=== PATIENT | female | born 1975 | race Caucasian/White ===

== ENCOUNTER 2016-10-31 15:01 | Emergency (ER) | payer SELFPAY ==
[~2016-10-31] VITALS: Ht 167.6 cm; Wt 108.9 kg
[~2016-10-31 15:01] MED LIST: AMOXICILLIN500 MG PO; CORDROL20 MG PO; FLEXERIL5 MG PO; Motrin,Rufen800 MG PO; NEURONTIN100 MG PO; NKHM; SUPHEDRIN PO; TAMIFLU75 MG PO; TESSALON PERLE200 MG PO; VIBRAMYCIN100 MG PO; VICODIN 500 MG-1 TAB PO; ZOFRAN ODT4 MG SL; ZYRTEC10 MG PO; [UNRECOGNIZED DRUG - OTHER] PO; [UNRECOGNIZED DRUG - REMARK]
[2016-10-31] MEDS ORDERED: ROBITUSSIN AC 110 ML PO (16:46)
[2016-10-31] MEDS ORDERED: FLONASE ALLERG9.9 ML NAS (16:46)
[2016-10-31] MEDS ORDERED: PREDNISONE10 MG PO (16:46)
[2016-10-31] MEDS ORDERED: CLARITIN10 MG PO (16:46)
== END 2016-10-31 17:56 | disposition home or self-care (01) ==
LOC: ED 15:01
DX: J20.9 Acute bronchitis, unspecified (principal); R03.0 Elevated blood-pressure reading, without diagnosis of hypertension; R50.9 Fever, unspecified; F17.200 Nicotine dependence, unspecified, uncomplicated

== ENCOUNTER 2017-02-27 16:16 | Emergency (ER) | payer SELFPAY ==
[~2017-02-27] VITALS: Ht 167.6 cm; Wt 108.9 kg
[~2017-02-27 16:16] MED LIST changes: +CLARITIN10 MG PO; +FLONASE ALLERG9.9 ML NAS; +PREDNISONE10 MG PO; +ROBITUSSIN AC 110 ML PO
== END 2017-02-27 17:48 | disposition home or self-care (01) ==
LOC: ED 16:16
DX: M72.2 Plantar fascial fibromatosis (principal); F17.200 Nicotine dependence, unspecified, uncomplicated; F10.10 Alcohol abuse, uncomplicated

== ENCOUNTER 2017-03-18 14:10 | Emergency (ER) | payer SELFPAY ==
[~2017-03-18] VITALS: Ht 167.6 cm; Wt 108.9 kg
== END 2017-03-18 14:33 | disposition home or self-care (01) ==
LOC: ED 14:10
DX: S46.911A Strain of unspecified muscle, fascia and tendon at shoulder and upper arm level, right arm, initial encounter (principal); F17.200 Nicotine dependence, unspecified, uncomplicated; X50.0XXA Overexertion from strenuous movement or load, initial encounter; Y93.89 Activity, other specified; Y92.89 Other specified places as the place of occurrence of the external cause; Y99.8 Other external cause status

== ENCOUNTER 2017-11-21 09:07 | Emergency (ER) | payer SELFPAY ==
[~2017-11-21] VITALS: Ht 167.6 cm; Wt 113.4 kg
[2017-11-21 09:43] LABS: BASO % 0.5 % (0.0-1.0); EOS # 0.3 10*3/uL (0.0-0.4); EOS % 4.1 % (1.0-4.0); HEMATOCRIT 48.2 % (37.0-47.0); LYMPH # 1.3 10*3/uL (1.3-4.4); LYMPH % 16.2 % (27.0-41.0); MEAN CELL VOLUME 85.8 fl (81.0-99.0); MEAN CORPUSCULAR HGB 28.5 pg (27.0-31.0); MEAN CORPUSCULAR HGB CONC 33.2 g/dl (33.0-37.0); MEAN PLATELET VOLUME 9.7 fl (9.6-12.3); MONO # 0.6 10*3/uL (0.1-1.0); MONO % 6.8 % (3.0-9.0); NEUT # 5.9 10*3/uL (2.3-7.9); NEUT % 72.2 % (47.0-73.0); PLATELET COUNT AUTOMATED 281 10*3/uL (130-400); RED BLOOD COUNT 5.62 10*6/uL (4.10-5.10); RED CELL DISTRI WIDTH 14.3 % (0-14.5); WHITE BLOOD COUNT 8.1 10*3/uL (4.8-10.8)
[2017-11-21] MEDS ORDERED: HYDR25T PO (09:56)
[2017-11-21 09:59] LABS: ALBUMIN 3.6 gm/dl (3.1-4.5); ALKALINE PHOSPHATASE 102 U/L (45-117); BUN 17 mg/dl (7-24); CHLORIDE 106 mmol/L (98-107); CREATININE 0.83 mg/dL (0.55-1.02); SGOT/AST 19 IU/L (3-35); SGPT/ALT 33 U/L (12-78); SODIUM 140 mmol/L (136-145); TOTAL PROTEIN 7.1 gm/dL (6.4-8.2)
== END 2017-11-21 10:43 | disposition home or self-care (01) ==
LOC: ED 09:07
PROVIDERS: Nurse Practitioner Family
DX: R51 Headache (principal); R03.0 Elevated blood-pressure reading, without diagnosis of hypertension; R11.2 Nausea with vomiting, unspecified

== ENCOUNTER → 2018-03-18 | Outpatient (CLI) | payer SELFPAY ==
[~2018-03-18] MED LIST changes: +CHANTIX1 M1 PO; +COREG12.5 M1 PO; +HYDR25T PO; +NAPROSYN500 MG PO; +XARELTO20 M1 PO; +ZESTRIL20 MG PO
== END | disposition home or self-care (01) ==
LOC: RESCLI 09:30
DX: Z00.00 Encounter for general adult medical examination without abnormal findings (principal); I10 Essential (primary) hypertension; F17.210 Nicotine dependence, cigarettes, uncomplicated; Z79.899 Other long term (current) drug therapy; Z88.8 Allergy status to other drugs, medicaments and biological substances

== ENCOUNTER 2018-03-22 15:56 | Emergency (ER) | payer SELFPAY ==
[~2018-03-22] VITALS: Ht 167.6 cm; Wt 122.9 kg
[~2018-03-22 15:56] MED LIST changes: -CHANTIX1 M1 PO; -COREG12.5 M1 PO; -NAPROSYN500 MG PO; -XARELTO20 M1 PO; -ZESTRIL20 MG PO
[2018-03-22] MEDS ORDERED: NAPROSYN500 MG PO (16:03)
== END 2018-03-22 17:41 | disposition home or self-care (01) ==
LOC: ED 15:56
DX: S93.601A Unspecified sprain of right foot, initial encounter (principal); R03.0 Elevated blood-pressure reading, without diagnosis of hypertension; Z79.899 Other long term (current) drug therapy; W01.0XXA Fall on same level from slipping, tripping and stumbling without subsequent striking against object, initial encounter; Y93.89 Activity, other specified; Y92.89 Other specified places as the place of occurrence of the external cause; Y99.8 Other external cause status

== ENCOUNTER 2018-07-14 15:25 | Emergency (ER) | payer SELFPAY ==
[~2018-07-14] VITALS: Ht 167.6 cm; Wt 122.5 kg
[~2018-07-14 15:25] MED LIST changes: +NAPROSYN500 MG PO
== END 2018-07-14 17:34 | disposition home or self-care (01) ==
LOC: ED 15:25
DX: S80.12XA Contusion of left lower leg, initial encounter (principal); Z79.899 Other long term (current) drug therapy; W08.XXXA Fall from other furniture, initial encounter; Y93.89 Activity, other specified; Y92.89 Other specified places as the place of occurrence of the external cause; Y99.8 Other external cause status

== ENCOUNTER → 2018-08-19 | Outpatient (CLI) | payer SELFPAY ==
[~2018-08-19] MED LIST changes: +CHANTIX1 M1 PO; +COREG12.5 M1 PO; +XARELTO20 M1 PO; +ZESTRIL20 MG PO
== END | disposition home or self-care (01) ==
LOC: RESCLI 01:18
DX: N92.1 Excessive and frequent menstruation with irregular cycle (principal); I10 Essential (primary) hypertension; Z71.6 Tobacco abuse counseling; Z72.0 Tobacco use; Z79.899 Other long term (current) drug therapy; Z88.8 Allergy status to other drugs, medicaments and biological substances

== ENCOUNTER → 2018-08-20 | Outpatient (CLI) | payer SELFPAY ==
[2018-08-20 08:08] LABS: BASO % 0.5 % (0.0-1.0); EOS # 0.3 10*3/uL (0.0-0.4); EOS % 3.8 % (1.0-4.0); HEMATOCRIT 50.9 % (37.0-47.0); HEMOGLOBIN 16.7 g/dl (12.0-16.0); LYMPH # 1.6 10*3/uL (1.3-4.4); LYMPH % 19.1 % (27.0-41.0); MEAN CELL VOLUME 89.1 fl (81.0-99.0); MEAN CORPUSCULAR HGB 29.2 pg (27.0-31.0); MEAN CORPUSCULAR HGB CONC 32.8 g/dl (33.0-37.0); MEAN PLATELET VOLUME 10.1 fl (9.6-12.3); MONO # 0.6 10*3/uL (0.1-1.0); MONO % 7.3 % (3.0-9.0); NEUT # 5.9 10*3/uL (2.3-7.9); NEUT % 69.1 % (47.0-73.0); PLATELET COUNT AUTOMATED 266 10*3/uL (130-400); RED BLOOD COUNT 5.71 10*6/uL (4.10-5.10); RED CELL DISTRI WIDTH 14.3 % (0-14.5); WHITE BLOOD COUNT 8.5 10*3/uL (4.8-10.8)
[2018-08-20 08:37] LABS: ALBUMIN 3.8 gm/dl (3.1-4.5); ALKALINE PHOSPHATASE 90 U/L (45-117); BUN 26 mg/dl (7-24); CHLORIDE 107 mmol/L (98-107); CHOLESTEROL 154 mg/dL (<200); HDL CHOLESTEROL 36 mg/dl (40-60); LDL CHOLESTEROL 98 mg/dL (9-159); POTASSIUM 4.2 mmol/L (3.5-5.1); SGOT/AST 21 IU/L (3-35); SGPT/ALT 37 U/L (12-78); SODIUM 140 mmol/L (136-145); TOTAL PROTEIN 7.3 gm/dL (6.4-8.2); TRIGLYCERIDES 101 mg/dl (<150); VLDL CHOLESTEROL 20 mg/dL (6-40)
[2018-08-20 08:59] LABS: VITAMIN D, 25-HYDROXY 35.5 ng/mL (30-100)
[2018-08-21 06:07] LABS: FOLLICLE STIMULATING HORMONE 14.9 mIU/mL (.); LUTEINIZING HORMONE 004283 15.1 mIU/mL (.)
== END | disposition home or self-care (01) ==
LOC: LAB 07:42
PROVIDERS: Student in an Organized Health Care Education/Training Program
DX: N92.1 Excessive and frequent menstruation with irregular cycle (principal)

== ENCOUNTER → 2018-09-22 | Outpatient (CLI) | payer SELFPAY | END | disposition home or self-care (01) | LOC: RESCLI 01:10 | DX: N92.1 Excessive and frequent menstruation with irregular cycle (principal); I10 Essential (primary) hypertension; Z71.6 Tobacco abuse counseling; Z72.0 Tobacco use; Z79.899 Other long term (current) drug therapy ==

== ENCOUNTER 2018-09-30 08:47 | Inpatient (IN) | payer SELFPAY ==
[~2018-09-30] VITALS: Ht 167.6 cm; Wt 128.9 kg
--- NOTE | ~2018-09-30 | ST ---
[place], [place] EXERCISE STRESS TEST REPORT NAME: NIKHIL HART UNIT #: [id number] ROOM: 427 DOCTOR: CASSIE CORTES MD BIRTHDATE: [birth year] DOS: 10/01/2018 LEXISCAN STRESS EKG REPORT REFERRING PHYSICIAN: Dr. Umanzor. INDICATION: Central chest pain. The patient underwent standard protocol Lexiscan stress EKG. The patient's baseline EKG showed normal sinus with nonspecific ST-T wave changes. Baseline heart rate was 62 with blood pressure 134/80. The patient's peak heart rate was 114 with a blood pressure of 132/88. The patient had no chest pain, no ischemic changes, no arrhythmias. Of note, her rhythm was normal sinus. SUMMARY OF FINDINGS: Unremarkable Lexiscan stress EKG. Please see separate report for perfusion scan imaging results. CASSIE CORTES MD CM:STRESS:EXERCISE STRESS TEST REPORT [id number] CASSIE CORTES MD
--- NOTE | ~2018-09-30 | EKG ---
[place], [place] ELECTROCARDIOGRAM REPORT NAME: NIKHIL HART UNIT #: [id number] ROOM: 427 DOCTOR: ELLIE DRAFT REPORT BIRTHDATE: [birth year] [facility] Test Date: 2018-09-30 Test Time: 15:00:03 Pat Name: NIKHIL HART Department: Room: 427 Gender: F String Studies Director: LELAND : 1975 Requested By: JEAN PAUL MONIQUE Order Number: [id number] Reading MD: Rafat Pederson MD Measurements Intervals [place] Rate: 86 P: MS: QRS: 22 QRSD: 90 T: 17 QT: 374 QTc: 448 Interpretive Statements Atrial fibrillation Borderline T abnormalities, inferior leads No previous ECG available for comparison Electronically Signed On 10-01-2018 13:02:17 PDT by Rafat Pederson MD CM:EKGRPT:ELECTROCARDIOGRAM REPORT 1500 1302 JEAN PAUL SHAH DRAFT REPORT JEAN PAUL MONIQUE DO
--- NOTE | ~2018-09-30 | EKG ---
[place], [place] ELECTROCARDIOGRAM REPORT NAME: NIKHIL HART UNIT #: [id number] ROOM: 427 DOCTOR: ELLIE DRAFT REPORT BIRTHDATE: [birth year] [facility] Test Date: 2018-09-30 Test Time: 12:00:39 Pat Name: NIKHIL HART Department: Room: 427 Gender: F Professor Of Environmental Science: Anila Caro : 1975 Requested By: JEAN PAUL MONIQUE Order Number: [id number] Reading MD: Rafat Pederson MD Measurements Intervals [place] Rate: 79 P: RI: QRS: 12 QRSD: 92 T: 21 QT: 381 QTc: 437 Interpretive Statements Atrial fibrillation Baseline wander in lead(s) II,V1 No previous ECG available for comparison Electronically Signed On 09-30-2018 12:30:09 PDT by Rafat Pederson MD CM:EKGRPT:ELECTROCARDIOGRAM REPORT 1200 1230 JEAN PAUL SHAH DRAFT REPORT JEAN PAUL MONIQUE DO
--- NOTE | ~2018-09-30 | EKG ---
[place], [place] ELECTROCARDIOGRAM REPORT NAME: NIKHIL HART UNIT #: [id number] ROOM: 427 DOCTOR: ELLIE DRAFT REPORT BIRTHDATE: [birth year] [facility] Test Date: 2018-09-30 Test Time: 08:52:26 Pat Name: NIKHIL HART Department: Room: 427 Gender: F Lapper: : 1975 Requested By: JEAN PAUL MONIQUE Order Number: [id number] Reading MD: Rafat Pederson MD Measurements Intervals [place] Rate: 88 P: ME: QRS: 15 QRSD: 99 T: 12 QT: 342 QTc: 414 Interpretive Statements Atrial fibrillation Minimal ST depression, inferior leads Baseline wander in lead(s) V4,V5,V6 No previous ECG available for comparison Electronically Signed On 09-30-2018 12:29:24 PDT by Rafat Pederson MD CM:EKGRPT:ELECTROCARDIOGRAM REPORT [id number] JEAN PAUL SHAH DRAFT REPORT JEAN PAUL MONIQUE DO
[~2018-09-30 08:47] MED LIST changes: -CHANTIX1 M1 PO; -COREG12.5 M1 PO; -XARELTO20 M1 PO; -ZESTRIL20 MG PO
[2018-09-30 08:51] VITALS: BP 106/79
[2018-09-30 09:33] LABS: BASO # 0.1 10*3/uL (0.0-0.1); BASO % 0.7 % (0.0-1.0); EOS # 0.3 10*3/uL (0.0-0.4); EOS % 3.2 % (1.0-4.0); HEMATOCRIT 51.5 % (37.0-47.0); HEMOGLOBIN 17.3 g/dl (12.0-16.0); LYMPH # 1.7 10*3/uL (1.3-4.4); LYMPH % 19.2 % (27.0-41.0); MEAN CELL VOLUME 87.4 fl (81.0-99.0); MEAN CORPUSCULAR HGB 29.4 pg (27.0-31.0); MEAN CORPUSCULAR HGB CONC 33.6 g/dl (33.0-37.0); MONO # 0.7 10*3/uL (0.1-1.0); MONO % 7.6 % (3.0-9.0); NEUT # 6.1 10*3/uL (2.3-7.9); PLATELET COUNT AUTOMATED 289 10*3/uL (130-400); RED BLOOD COUNT 5.89 10*6/uL (4.10-5.10); RED CELL DISTRI WIDTH 13.7 % (0-14.5); WHITE BLOOD COUNT 8.9 10*3/uL (4.8-10.8)
[2018-09-30 09:35] VITALS: BP 106/72
[2018-09-30 09:43] LABS: ACT PARTIAL THROMBO TIME 27.9 SECONDS (20.0-32.1)
[2018-09-30 09:50] LABS: ALBUMIN 3.6 gm/dl (3.1-4.5); BUN 18 mg/dl (7-24); CHLORIDE 103 mmol/L (98-107); CREATININE 0.94 mg/dL (0.55-1.02); POTASSIUM 3.6 mmol/L (3.5-5.1); SGOT/AST 22 IU/L (3-35); SGPT/ALT 40 U/L (12-78); SODIUM 134 mmol/L (136-145)
[2018-09-30 09:51] LABS: LIPASE 135 U/L (73-393)
[2018-09-30 09:53] LABS: ALKALINE PHOSPHATASE 93 U/L (45-117)
[2018-09-30 09:54] LABS: BETA-HCG, QUANT < 1.0 mIU/mL (1-3); TROPONIN I < 0.015 ng/ml (<0.045)
--- NOTE | 2018-09-30 10:24 | NUR ---
AMBULATED TO BATHROOM AND BACK, TOLERATED WELL.
[2018-09-30 10:42] VITALS: BP 110/70
[2018-09-30 10:45] VITALS: BP 118/86
--- NOTE | 2018-09-30 10:45 | NUR ---
A 43, admitted to , under the services of GILMER Turner DO with a diagnosis of NEW ONSET AFIBB, CHEST PAIN. Chief complaint is NEW ONSET AFIBB, CHEST PAIN. Patient arrived via stretcher from ER. Monitor applied. Initial assessment completed. Vital signs taken and recorded. GILMER TURNER DO notified of admission to the unit. Orders received. See assessment for past medical history, medications and allergies. Patient and/or family oriented to unit. [address] visitation policy reviewed. Clothing/patient valuable form completed. MERRICK DE LEÓN
[2018-09-30] MEDS ORDERED: COREG12.5 M1 PO (12:22)
--- NOTE | 2018-09-30 12:22 | NUR ---
DR CORTES ON FLOOR AND NOTIFIED OF CONSULT.
[2018-09-30] MEDS ORDERED: ZESTRIL20 MG PO (12:24)
[2018-09-30] MEDS ORDERED: CHANTIX1 M1 PO (12:24)
[2018-09-30 16:00] VITALS: BP 113/64
[2018-09-30 20:00] VITALS: BP 129/83
--- NOTE | 2018-09-30 20:39 | NUR ---
24 HOUR CHART CHECK DONE
[2018-10-01] VITALS: BP 128/88
[2018-10-01 04:00] VITALS: BP 128/88
[2018-10-01 06:14] LABS: BASO # 0.1 10*3/uL (0.0-0.1); BASO % 0.7 % (0.0-1.0); EOS # 0.3 10*3/uL (0.0-0.4); EOS % 4.6 % (1.0-4.0); HEMATOCRIT 50.7 % (37.0-47.0); HEMOGLOBIN 16.5 g/dl (12.0-16.0); LYMPH # 1.9 10*3/uL (1.3-4.4); LYMPH % 27.6 % (27.0-41.0); MEAN CELL VOLUME 88.9 fl (81.0-99.0); MEAN CORPUSCULAR HGB 28.9 pg (27.0-31.0); MEAN CORPUSCULAR HGB CONC 32.5 g/dl (33.0-37.0); MEAN PLATELET VOLUME 10.5 fl (9.6-12.3); MONO # 0.7 10*3/uL (0.1-1.0); MONO % 10.9 % (3.0-9.0); NEUT # 3.8 10*3/uL (2.3-7.9); NEUT % 55.9 % (47.0-73.0); PLATELET COUNT AUTOMATED 257 10*3/uL (130-400); RED CELL DISTRI WIDTH 13.7 % (0-14.5); WHITE BLOOD COUNT 6.8 10*3/uL (4.8-10.8)
[2018-10-01 06:30] LABS: ALBUMIN 3.3 gm/dl (3.1-4.5); BUN 19 mg/dl (7-24); CHLORIDE 104 mmol/L (98-107); CHOLESTEROL 144 mg/dL (<200); CREATININE 0.79 mg/dL (0.55-1.02); PHOSPHOROUS 3.6 mg/dL (2.5-4.9); POTASSIUM 3.4 mmol/L (3.5-5.1); SGOT/AST 23 IU/L (3-35); SGPT/ALT 44 U/L (12-78); SODIUM 135 mmol/L (136-145); TRIGLYCERIDES 171 mg/dl (<150); VLDL CHOLESTEROL 34 mg/dL (6-40)
[2018-10-01 06:32] LABS: ALKALINE PHOSPHATASE 87 U/L (45-117); HDL CHOLESTEROL 26 mg/dl (40-60); LDL CHOLESTEROL 84 mg/dL (9-159); TOTAL PROTEIN 6.7 gm/dL (6.4-8.2)
--- NOTE | 2018-10-01 08:00 | NUR ---
PT LYING IN BED, RESTING. EASILY AWAKENED. ALERT ORIENTED AND PLEASANT WITH STAFF. NO COMPLAINTS VOICED BY PT AT THIS TIME. ASSESSMENT COMPLETE. NO S/S OF SOB/DISTRESS ON ROOM AIR. WILL CONTINUE TO MONITOR. CALL LIGHT IN REACH.
[2018-10-01 08:30] VITALS: BP 110/62
--- NOTE | 2018-10-01 09:00 | NUR ---
Tooling Specialist in to talk to patient. Patient states lives at home with alone. There are few steps in the home. Physician: resident clinic Pharmacy: none listed Home health services: none Patient's level of ADLs: INDEPENDENT Patient has working utilities: all working DME: none Follow-up physician's appointment after d/c: will be made by hospitalist nurse director upon discharge Does patient want to access PORTAL?: no Discharge plan discussed with patient she lives at home, she is independent in adls and ambualtion, works, drives, she states she will be going home when able and denies any home needs. MILTON TUCKER
--- NOTE | 2018-10-01 10:00 | NUR ---
AM MEDICATIONS HELD DUE TO PT BEING NPO FOR STRESS TEST. WILL MEDICATE PT AFTER TEST.
--- NOTE | 2018-10-01 10:28 | NUR ---
PT OFF OF FLOOR FOR STRESS TEST AT THIS TIME.
--- NOTE | 2018-10-01 11:40 | NUR ---
INFORMED SIGNED CONSENT OBTAINED FOR LEXISCAN STRESS TEST WITH DR CORTES. RESTING EKG NSR HR 62 BP 134/80. PULSE OX 97% LUNGS CLEAR. PT COMPLETED ONE MINUTE OF A LEXISCAN PROTOCOL WITH PT RECIEVING LEXISCAN 0.4MG IV OVER 10 SECONDS. NO ARRHYTHMIAS NO ST CHANGES SEEN. PT FELT NERVOUS WITH INJECTION. LAST RECOVERY HR OF 93 BP 122/84. PT IN STABLE CONDITION, AWIATING NUCLEAR IMAGES.
[2018-10-01 12:00] VITALS: BP 111/65
--- NOTE | 2018-10-01 14:20 | NUR ---
PT C/O HEADACHE. NORCO GIVEN AT THIS TIME. WILL MONITOR. CALL LIGHT IN REACH.
[2018-10-01] MEDS ORDERED: XARELTO20 M1 PO (14:35)
--- NOTE | 2018-10-01 15:20 | NUR ---
VERÓNICA EFFECTIVE PER PT.
[2018-10-01 16:00] VITALS: BP 110/58
--- NOTE | 2018-10-01 16:21 | NUR ---
Discharge instructions reviewed with patient/family. Patient receptive and verbalizes understanding. Follow-up care arranged. Written instructions given to patient/family. DONTAE SALAS
[2018-10-01] MEDS ORDERED: COREG12.5 M1 PO (16:23)
== END 2018-10-01 16:21 | disposition home or self-care (01) | DRG 309 ==
LOC: ED 08:47 → EDHOLD 10:25 → 4E 10:35
PROVIDERS: Emergency Medicine; Student in an Organized Health Care Education/Training Program; ADMIT Internal Medicine
PROC: 4A02XM4 Measurement of Cardiac Total Activity, External Approach (ICD-10-PCS; principal; 2018-10-01)
PROC: 3E073KZ Introduction of Other Diagnostic Substance into Coronary Artery, Percutaneous Approach (ICD-10-PCS; principal; 2018-10-01)
DX: I48.91 Unspecified atrial fibrillation (principal); E87.1 Hypo-osmolality and hyponatremia; K21.9 Gastro-esophageal reflux disease without esophagitis; I10 Essential (primary) hypertension; E66.01 Morbid (severe) obesity due to excess calories; R73.9 Hyperglycemia, unspecified; D75.1 Secondary polycythemia; J30.2 Other seasonal allergic rhinitis; G43.909 Migraine, unspecified, not intractable, without status migrainosus; F17.210 Nicotine dependence, cigarettes, uncomplicated; Z68.42 Body mass index [BMI] 45.0-49.9, adult; Z83.6 Family history of other diseases of the respiratory system; Z82.49 Family history of ischemic heart disease and other diseases of the circulatory system; Z79.899 Other long term (current) drug therapy; Z71.6 Tobacco abuse counseling; Z83.3 Family history of diabetes mellitus

== ENCOUNTER → 2018-11-17 | Outpatient (CLI) | payer SELFPAY ==
[~2018-11-17] MED LIST changes: +CHANTIX1 M1 PO; +COREG12.5 M1 PO; +XARELTO20 M1 PO; +ZESTRIL20 MG PO
== END | disposition home or self-care (01) ==
LOC: RESCLI 00:15
DX: I48.0 Paroxysmal atrial fibrillation (principal); I10 Essential (primary) hypertension; R29.818 Other symptoms and signs involving the nervous system; D75.1 Secondary polycythemia; Z72.0 Tobacco use; Z68.41 Body mass index [BMI] 40.0-44.9, adult; Z79.899 Other long term (current) drug therapy

== ENCOUNTER → 2019-01-26 | Outpatient (CLI) | payer SELFPAY ==
[2019-01-26 16:44] LABS: BASO # 0.1 10*3/uL (0.0-0.1); BASO % 0.5 % (0.0-1.0); EOS # 0.3 10*3/uL (0.0-0.4); EOS % 3.5 % (1.0-4.0); HEMATOCRIT 48.4 % (37.0-47.0); HEMOGLOBIN 15.8 g/dl (12.0-16.0); LYMPH # 1.7 10*3/uL (1.3-4.4); LYMPH % 19.1 % (27.0-41.0); MEAN CELL VOLUME 87.7 fl (81.0-99.0); MEAN CORPUSCULAR HGB 28.6 pg (27.0-31.0); MEAN CORPUSCULAR HGB CONC 32.6 g/dl (33.0-37.0); MEAN PLATELET VOLUME 10.7 fl (9.6-12.3); MONO # 0.7 10*3/uL (0.1-1.0); MONO % 7.5 % (3.0-9.0); NEUT # 6.3 10*3/uL (2.3-7.9); NEUT % 69.3 % (47.0-73.0); PLATELET COUNT AUTOMATED 322 10*3/uL (130-400); RED BLOOD COUNT 5.52 10*6/uL (4.10-5.10); RED CELL DISTRI WIDTH 13.4 % (0-14.5); WHITE BLOOD COUNT 9.1 10*3/uL (4.8-10.8)
[2019-01-26 17:07] LABS: BUN 22 mg/dl (7-24); CHLORIDE 107 mmol/L (98-107); CREATININE 1.08 mg/dL (0.55-1.02); POTASSIUM 3.7 mmol/L (3.5-5.1); SODIUM 141 mmol/L (136-145)
== END | disposition home or self-care (01) ==
LOC: RESCLI 01:43
PROVIDERS: Internal Medicine
DX: I48.0 Paroxysmal atrial fibrillation (principal); I10 Essential (primary) hypertension; H60.501 Unspecified acute noninfective otitis externa, right ear; F17.210 Nicotine dependence, cigarettes, uncomplicated; R29.818 Other symptoms and signs involving the nervous system; Z79.899 Other long term (current) drug therapy; Z71.6 Tobacco abuse counseling; Z88.8 Allergy status to other drugs, medicaments and biological substances

== ENCOUNTER → 2019-04-07 | Outpatient (CLI) | payer SELFPAY | END | disposition home or self-care (01) | LOC: RESCLI 09:30 | DX: J06.9 Acute upper respiratory infection, unspecified (principal); E66.01 Morbid (severe) obesity due to excess calories; I48.0 Paroxysmal atrial fibrillation; I10 Essential (primary) hypertension; Z71.6 Tobacco abuse counseling; Z79.899 Other long term (current) drug therapy; Z72.89 Other problems related to lifestyle ==

== ENCOUNTER 2019-04-27 16:27 | Emergency (ER) | payer SELFPAY ==
[~2019-04-27] VITALS: Ht 167.6 cm; Wt 124.3 kg
== END 2019-04-27 18:43 | disposition home or self-care (01) ==
LOC: ED 16:27
DX: S80.11XA Contusion of right lower leg, initial encounter (principal); F17.200 Nicotine dependence, unspecified, uncomplicated; Z79.899 Other long term (current) drug therapy; W01.0XXA Fall on same level from slipping, tripping and stumbling without subsequent striking against object, initial encounter; Y93.89 Activity, other specified; Y92.89 Other specified places as the place of occurrence of the external cause; Y99.8 Other external cause status

== ENCOUNTER → 2019-12-29 | Outpatient (CLI) | payer OTHER | END | disposition home or self-care (01) | LOC: RESCLI 08:49 | PROVIDERS: ATTEND Internal Medicine Nephrology | DX: I48.0 Paroxysmal atrial fibrillation (principal); I10 Essential (primary) hypertension; R29.818 Other symptoms and signs involving the nervous system; E66.01 Morbid (severe) obesity due to excess calories; K21.9 Gastro-esophageal reflux disease without esophagitis; Z12.31 Encounter for screening mammogram for malignant neoplasm of breast; Z12.4 Encounter for screening for malignant neoplasm of cervix; Z71.6 Tobacco abuse counseling; Z79.899 Other long term (current) drug therapy ==

== ENCOUNTER → 2020-01-12 | Outpatient (CLI) | payer OTHER | END | disposition home or self-care (01) | LOC: MAMMO 08:30 | PROVIDERS: ATTEND Internal Medicine Nephrology | DX: Z12.31 Encounter for screening mammogram for malignant neoplasm of breast (principal) ==

== ENCOUNTER 2020-03-22 13:46 | Emergency (ER) | payer OTHER ==
[~2020-03-22] VITALS: Ht 167.6 cm; Wt 122.5 kg
== END 2020-03-22 16:45 | disposition home or self-care (01) ==
LOC: ED 13:46
DX: G43.909 Migraine, unspecified, not intractable, without status migrainosus (principal); F17.200 Nicotine dependence, unspecified, uncomplicated; Z79.899 Other long term (current) drug therapy

== ENCOUNTER 2020-04-05 12:09 | Emergency (ER) | payer OTHER ==
[~2020-04-05] VITALS: Ht 167.6 cm; Wt 117.9 kg
[2020-04-05] MEDS ORDERED: Fioricet 325 MG1 TAB PO (14:05)
== END 2020-04-05 14:47 | disposition home or self-care (01) ==
LOC: ED 12:09
DX: R51.9 Headache, unspecified (principal); Z79.899 Other long term (current) drug therapy

== ENCOUNTER → 2020-05-18 | Outpatient (CLI) | payer OTHER ==
[~2020-05-18] MED LIST changes: +Fioricet 325 MG1 TAB PO
== END | disposition home or self-care (01) ==
LOC: RESCLI 00:27
PROVIDERS: ATTEND Internal Medicine
DX: I48.0 Paroxysmal atrial fibrillation (principal); I10 Essential (primary) hypertension; E66.01 Morbid (severe) obesity due to excess calories; L20.9 Atopic dermatitis, unspecified; K21.9 Gastro-esophageal reflux disease without esophagitis; F17.200 Nicotine dependence, unspecified, uncomplicated; Z71.6 Tobacco abuse counseling; Z68.41 Body mass index [BMI] 40.0-44.9, adult; Z79.899 Other long term (current) drug therapy

== ENCOUNTER → 2020-10-05 | Outpatient (CLI) | payer OTHER | END | disposition home or self-care (01) | LOC: RESCLI 00:33 | PROVIDERS: ATTEND Internal Medicine | DX: N93.8 Other specified abnormal uterine and vaginal bleeding (principal); I10 Essential (primary) hypertension; I48.0 Paroxysmal atrial fibrillation; F17.210 Nicotine dependence, cigarettes, uncomplicated; K21.9 Gastro-esophageal reflux disease without esophagitis; E66.01 Morbid (severe) obesity due to excess calories; Z71.6 Tobacco abuse counseling; Z79.899 Other long term (current) drug therapy ==

== ENCOUNTER 2021-02-15 07:54 | Emergency (ER) | payer OTHER ==
[~2021-02-15] VITALS: Wt 122.5 kg
== END 2021-02-15 09:10 | disposition home or self-care (01) ==
LOC: ED 07:54
DX: M79.672 Pain in left foot (principal)

== ENCOUNTER → 2021-04-01 | Outpatient (CLI) | payer OTHER | END | disposition home or self-care (01) | LOC: RESCLI 00:28 | PROVIDERS: ATTEND Internal Medicine Nephrology | DX: I10 Essential (primary) hypertension (principal); I48.0 Paroxysmal atrial fibrillation; K21.9 Gastro-esophageal reflux disease without esophagitis; N92.6 Irregular menstruation, unspecified; E66.01 Morbid (severe) obesity due to excess calories; Z68.41 Body mass index [BMI] 40.0-44.9, adult; Z71.6 Tobacco abuse counseling; Z79.899 Other long term (current) drug therapy ==

== ENCOUNTER → 2021-04-17 | Outpatient (CLI) | payer OTHER | END | disposition home or self-care (01) | LOC: MAMMO 07:30 | PROVIDERS: ATTEND Internal Medicine | DX: Z12.31 Encounter for screening mammogram for malignant neoplasm of breast (principal) ==

== ENCOUNTER → 2021-09-19 | Outpatient (CLI) | payer OTHER | END | disposition home or self-care (01) | LOC: RESCLI 08:28 | PROVIDERS: ATTEND Emergency Medicine | DX: I10 Essential (primary) hypertension (principal); I48.0 Paroxysmal atrial fibrillation; K21.9 Gastro-esophageal reflux disease without esophagitis; Z71.6 Tobacco abuse counseling; Z12.31 Encounter for screening mammogram for malignant neoplasm of breast; N92.6 Irregular menstruation, unspecified; F17.200 Nicotine dependence, unspecified, uncomplicated; E66.01 Morbid (severe) obesity due to excess calories; Z68.41 Body mass index [BMI] 40.0-44.9, adult; Z79.899 Other long term (current) drug therapy; Z79.01 Long term (current) use of anticoagulants ==

== ENCOUNTER 2022-07-14 16:27 | Emergency (ER) | payer OTHER ==
[~2022-07-14] VITALS: Ht 167.6 cm; Wt 136.1 kg
[2022-07-14] MEDS ORDERED: OMEPRAZOLE20 M3 PO (16:41)
== END 2022-07-14 18:36 | disposition home or self-care (01) ==
LOC: ED 16:27
DX: M25.461 Effusion, right knee (principal)

== ENCOUNTER 2022-08-06 05:45 | Emergency (ER) | payer OTHER ==
[~2022-08-06] VITALS: Ht 162.5 cm; Wt 136.1 kg
[~2022-08-06 05:45] MED LIST changes: +OMEPRAZOLE20 M3 PO
[2022-08-06] MEDS ORDERED: WAL-ITIN5 MG/5 ML PO (06:20)
== END 2022-08-06 06:40 | disposition home or self-care (01) ==
LOC: ED 05:45
DX: H10.9 Unspecified conjunctivitis (principal); J30.2 Other seasonal allergic rhinitis; K21.9 Gastro-esophageal reflux disease without esophagitis; R73.9 Hyperglycemia, unspecified; I10 Essential (primary) hypertension; I48.91 Unspecified atrial fibrillation; E87.1 Hypo-osmolality and hyponatremia; G43.909 Migraine, unspecified, not intractable, without status migrainosus; F17.200 Nicotine dependence, unspecified, uncomplicated

== ENCOUNTER 2022-12-30 03:01 | Emergency (ER) | payer OTHER ==
[~2022-12-30] VITALS: Ht 172.7 cm; Wt 108.9 kg
[~2022-12-30 03:01] MED LIST changes: +WAL-ITIN5 MG/5 ML PO
[2022-12-30] MEDS ORDERED: CYCLOBENZAPRINE10 MG PO (04:21)
== END 2022-12-30 04:25 | disposition home or self-care (01) ==
LOC: ED 03:01
DX: M62.830 Muscle spasm of back (principal); I10 Essential (primary) hypertension; I48.91 Unspecified atrial fibrillation; G43.909 Migraine, unspecified, not intractable, without status migrainosus; F17.290 Nicotine dependence, other tobacco product, uncomplicated

== ENCOUNTER 2023-03-20 23:52 | Emergency (ER) | payer OTHER ==
[~2023-03-20] VITALS: Ht 167.6 cm; Wt 135.2 kg
[~2023-03-20 23:52] MED LIST changes: +CYCLOBENZAPRINE10 MG PO
[2023-03-21] MEDS ORDERED: COREG25 MG PO (00:19)
== END 2023-03-21 01:07 | disposition home or self-care (01) ==
LOC: ED 23:52
DX: S09.90XA Unspecified injury of head, initial encounter (principal); I48.91 Unspecified atrial fibrillation; F17.200 Nicotine dependence, unspecified, uncomplicated; Z79.899 Other long term (current) drug therapy; W22.09XA Striking against other stationary object, initial encounter; Y93.89 Activity, other specified; Y92.89 Other specified places as the place of occurrence of the external cause; Y99.8 Other external cause status

== ENCOUNTER → 2024-07-12 | Outpatient (CLI) | payer BC, OTHER ==
[~2024-07-12] MED LIST changes: +COREG25 MG PO
== END | disposition home or self-care (01) ==
LOC: RAD 11:02
PROVIDERS: ATTEND Family Medicine
DX: M25.551 Pain in right hip (principal)